=== PATIENT | male | born 2000 | race Caucasian/White ===

== ENCOUNTER 2019-03-30 19:14 | Emergency (ER) | payer OTHER ==
[2019-03-30 20:51] VITALS: BP 177/120
--- NOTE | 2019-03-30 21:26 | UC ---
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 -has pain anterior knee -supoosed to work tomorrow AM buthis boss mentioned something about his job status -doesnt think he would be able to work tomorrow d/t the pain. -not locking or giving out. pain worse w/ stairs and bedning - BP was nml in Aug at [facility] CPE./ does not recall havinghigh BP. 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 denies CP/SOB/WHITE/W/N/T - History of Current Complaint Chief Complaint: UCLowerExtremity Stated Complaint: R KNEE PAIN Time Seen by Provider: 03/30/19 21:08 Pain Intensity: 2 - Allergies/Home Medications Allergies/Adverse Reactions: Allergies Allergy/AdvReac Type Severity Reaction Status Date / Time No Known Allergies Allergy Verified 03/30/19 20:51 PMH/Surg Hx/FS Hx/Imm Hx Previously Healthy: Yes - Surgical History Surgical History: Yes Surgery Procedure, Year, and Place: T & A. right knee surgery, 11/03/15 - Family History Known Family History: Positive: Non-Contributory - Social History Alcohol Use: None Substance Use Type: None Smoking Status (MU): Never Smoked Tobacco - Immunization History Vaccination Up to Date: Yes Review of Systems All Other Systems Reviewed And Are Negative: Yes Constitutional: Positive: Negative Skin: Positive: Negative Eyes: Positive: Negative ENT: Positive: Negative Respiratory: Positive: Negative Cardiovascular: Positive: Negative Gastrointestinal: Positive: Negative Motor: Positive: Negative Neurovascular: Positive: Negative Musculoskeletal: Positive: Arthralgia. Negative: Edema Neurological: Positive: Negative Psychological: Positive: Negative Is Patient Immunocompromised?: No Physical Exam Triage Information Reviewed: Yes Appearance: Well-Appearing, No Pain Distress, Well-Nourished - very pleasant Vital Signs: Initial Vital Signs Temp 98.3 F 03/30/19 20:46 Pulse 98 03/30/19 20:46 Resp 20 03/30/19 20:46 BP 177/120 03/30/19 20:46 Pulse Ox 99 03/30/19 20:46 Vital Signs Reviewed: Yes Eye Exam: Normal ENT Exam: Normal Respiratory Exam: Normal Respiratory: Positive: Chest non-tender, Lungs clear Cardiovascular Exam: Normal Musculoskeletal Exam: Normal Musculoskeletal: Positive: Strength Intact, ROM Intact, Other: - exam somewhat limited d/t habitus. no varus/valgus laxity. no A/P drawer Neurological Exam: Normal Psychological Exam: Normal Skin Exam: Normal Lower Extremity Course/Dx - Course Course Of Treatment: Physiocal therapy will likely be helpful. - Differential Dx/Diagnosis Differential Diagnosis/HQI/PQRI: Sprain, Strain, Tendonitis, Other - Elevated blood pressure Provider Diagnosis: Elevated blood pressure reading, Right anterior knee pain Discharge ED - Sign-Out/Discharge Documenting (check all that apply): Patient Departure All imaging exams completed and their final reports reviewed: No Studies - Discharge Plan Condition: Stable Disposition: HOME Patient Education Materials: Knee Pain (ED), Low-Sodium Diet (ED) Forms: *Work Release Referrals: Mega Becker MD [Primary Care Provider] - 4 Days Additional Instructions: Follow up with your orthopedic surgeon Dr Thompson this week. -You my have patellofemoral syndrome causing your pain. you can find exercises for this online. -we are giving you an out of work note for the weekend. -Ibuprofen can raise your blood pressure further and is not recommended. -ice, rest -we talked about your blood pressure being high. Your mom thuoght your anxiety contributed to this. Please follow up with your PCP on Tuesday to have this recehcked. Avoid salt in your diet as well as all NSAIDs. Repeat blood pressure is better but still high at 151/106 on your left arm with large cuff - Billing Disposition and Condition Condition: STABLE Disposition: Home
== END 2019-03-30 21:52 | disposition home or self-care (01) ==
LOC: UCCORT 19:14
DX: M25.561 Pain in right knee (principal); R03.0 Elevated blood-pressure reading, without diagnosis of hypertension
CPT/HCPCS: 99211; G0463